=== PATIENT | female | born 1980 | race Caucasian/White ===

== ENCOUNTER 2017-01-19 10:01 | Emergency (ER) | payer SELFPAY ==
[~2017-01-19] VITALS: Ht 167.6 cm; Wt 72.2 kg
[2017-01-19 10:22] VITALS: BP 129/80
== END 2017-01-19 11:38 | disposition home or self-care (01) ==
LOC: ED 11:00
DX: J20.9 Acute bronchitis, unspecified (principal); B96.89 Other specified bacterial agents as the cause of diseases classified elsewhere; H66.001 Acute suppurative otitis media without spontaneous rupture of ear drum, right ear; J45.909 Unspecified asthma, uncomplicated
CPT/HCPCS: 71020; 93005; 99284

== ENCOUNTER 2017-02-18 08:17 | Emergency (ER) | payer SELFPAY ==
[~2017-02-18] VITALS: Ht 167.6 cm; Wt 74.0 kg
[2017-02-18 08:18] VITALS: BP 130/85
== END 2017-02-18 08:51 | disposition home or self-care (01) ==
LOC: ED 08:40
DX: K02.9 Dental caries, unspecified (principal); J45.909 Unspecified asthma, uncomplicated
CPT/HCPCS: 99283

== ENCOUNTER 2017-06-14 16:48 | Emergency (ER) | payer SELFPAY ==
[~2017-06-14] VITALS: Ht 167.6 cm; Wt 73.6 kg
[2017-06-14 16:49] VITALS: BP 133/88
[2017-06-14] MEDS ORDERED: ONDANSETRON ODT 4 MG ONE (17:27)
[2017-06-14] MEDS ORDERED: HYDROcodone/APAP 5/325 TABLET PO ONE (17:29)
[2017-06-14] MEDS ORDERED: ONDANSETRON ODT 4 MG PO ONE (17:30)
[2017-06-14] MEDS ORDERED: HYDROcodone/APAP 5/325 TABLET ONE (17:51)
== END 2017-06-14 18:20 | disposition home or self-care (01) ==
LOC: ED 18:10
DX: S93.492A Sprain of other ligament of left ankle, initial encounter (principal); F12.10 Cannabis abuse, uncomplicated; W18.30XA Fall on same level, unspecified, initial encounter; Y99.8 Other external cause status; Y93.01 Activity, walking, marching and hiking; Y92.488 Other paved roadways as the place of occurrence of the external cause
CPT/HCPCS: 99284

== ENCOUNTER 2017-07-24 10:12 | Emergency (ER) | payer SELFPAY ==
[~2017-07-24] VITALS: Ht 167.6 cm; Wt 72.6 kg
[2017-07-24 10:16] VITALS: BP 108/78
[2017-07-24] MEDS ORDERED: DIAZEPAM 5 MG TABLET ONE (10:52)
[2017-07-24] MEDS ORDERED: KETOROLAC 30 MG/1 ML ONE (10:52)
[2017-07-24] MEDS ORDERED: KETOROLAC 30 MG/1 ML IM ONE (11:00)
[2017-07-24] MEDS ORDERED: DIAZEPAM 5 MG TABLET PO ONE (11:00)
== END 2017-07-24 12:37 | disposition home or self-care (01) ==
LOC: ED 11:45
DX: M54.12 Radiculopathy, cervical region (principal); J45.909 Unspecified asthma, uncomplicated; F17.200 Nicotine dependence, unspecified, uncomplicated; Z90.49 Acquired absence of other specified parts of digestive tract; Z88.0 Allergy status to penicillin; Z88.1 Allergy status to other antibiotic agents
CPT/HCPCS: 72050; 73030; 73110; 96372; 99284; J1885; J7512

== ENCOUNTER 2017-11-03 07:38 | Emergency (ER) | payer OTHER ==
[~2017-11-03] VITALS: Ht 167.6 cm; Wt 68.2 kg
[2017-11-03] MEDS ORDERED: PROMETHAZINE 25 MG/ML, 1ML IM ONE (08:00)
[2017-11-03] MEDS ORDERED: SODIUM CHLORIDE FLUSH 10ML SYR IVF ONE (08:00)
[2017-11-03] MEDS ORDERED: SODIUM CHLORIDE 0.9% 1,000 ML IV ONE (08:00)
[2017-11-03] MEDS ORDERED: SODIUM CHLORIDE 0.9% 1,000ML IVBOLUS ONE (08:00)
[2017-11-03] MEDS ORDERED: PROMETHAZINE 25 MG/ML, 1ML ONE (08:11)
[2017-11-03 08:27] LABS: BASOPHILS # (AUTO) 0.05 x10^3/uL (0-0.1); BASOPHILS % (AUTO) 0 % (0-1); EOSINOPHILS # (AUTO) 0.45 x10^3/uL (0-0.4); EOSINOPHILS % (AUTO) 3 % (1-7); LYMPHOCYTES # (AUTO) 2.69 x10^3/uL (1-3.4); LYMPHOCYTES % (AUTO) 20 % (22-44); MD NO; MEAN CORPUSCULAR HEMOGLOBIN 31.9 pg (27.0-34.8); MEAN CORPUSCULAR HGB CONC 33.9 g/dL (32.4-35.8); MEAN PLATELET VOLUME 8.4 fL (7.4-10.4); MONOCYTES # (AUTO) 0.86 x10^3/uL (0.2-0.8); MONOCYTES % (AUTO) 7 % (2-9); NEUTROPHILS # (AUTO) 9.21 x10^3/uL (1.8-6.8); NEUTROPHILS % (AUTO) 70 % (42-75); PLATELET COUNT 283 x10^3/uL (130-400); RED BLOOD COUNT 4.87 x10^6/uL (3.82-5.3)
[2017-11-03 08:31] LABS: RAPID INFLUENZA A Negative (Negative)
[2017-11-03 08:32] LABS: RAPID INFLUENZA B Negative (Negative)
[2017-11-03 08:37] LABS: ALBUMIN 4.1 g/dL (3.4-5.0); ANION GAP 12 mmol/L (5-15); CALCIUM 9.2 mg/dL (8.5-10.1); CHLORIDE 107 mmol/L (98-107)
[2017-11-03 08:45] LABS: ALANINE AMINOTRANSFERASE 36 U/L (12-78); ALKALINE PHOSPHATASE 61 U/L (45-117); BILIRUBIN,TOTAL 0.6 mg/dL (0.2-1.0); CREATININE 0.85 mg/dL (0.55-1.02); TOTAL PROTEIN 7.8 g/dL (6.4-8.2)
[2017-11-03] MEDS ORDERED: METOCLOPRAMIDE 5 MG/ML, 2ML ONE (09:56)
[2017-11-03] MEDS ORDERED: METOCLOPRAMIDE 5 MG/ML, 2ML IVPush ONE (10:00)
[2017-11-03] MEDS ORDERED: ONDANSETRON 2MG/ML, 2ML ONE (10:14)
[2017-11-03] MEDS ORDERED: ONDANSETRON 2MG/ML, 2ML IVPush ONE (10:30)
[2017-11-03] MEDS ORDERED: OMNIPAQUE 350 MG/ML, 100ML BOTTLE ONE (10:59)
[2017-11-03 11:46] VITALS: BP 117/73
[2017-11-03 11:48] LABS: MICROSCOPIC NOT IND
[2017-11-03 11:51] LABS: CULTURE INDICATED? NO
== END 2017-11-03 11:50 | disposition home or self-care (01) ==
LOC: ED 09:03
DX: K52.9 Noninfective gastroenteritis and colitis, unspecified (principal); D72.829 Elevated white blood cell count, unspecified; J45.909 Unspecified asthma, uncomplicated
CPT/HCPCS: 36415; 74022; 74177; 80053; 81003; 83690; 84703; 85025; 87400; 96361; 96372; 96374; 96375; 99285; J2405; J2550; J2765; J7030; Q9967

== ENCOUNTER 2018-03-31 10:32 | Emergency (ER) | payer OTHER ==
[~2018-03-31] VITALS: Ht 167.6 cm; Wt 76.5 kg
[2018-03-31 10:34] VITALS: BP 131/70
[2018-03-31] MEDS ORDERED: HYDROcodone/APAP 5/325 TABLET ONE (10:59)
[2018-03-31] MEDS ORDERED: HYDROcodone/APAP 5/325 TABLET PO ONE (11:00)
== END 2018-03-31 13:30 | disposition home or self-care (01) ==
LOC: ED 11:00
DX: S90.32XA Contusion of left foot, initial encounter (principal); J45.909 Unspecified asthma, uncomplicated; W19.XXXA Unspecified fall, initial encounter; Y93.39 Activity, other involving climbing, rappelling and jumping off; Y92.828 Other wilderness area as the place of occurrence of the external cause; Y99.9 Unspecified external cause status
CPT/HCPCS: 29515; 99284

== ENCOUNTER 2018-08-30 11:21 | Emergency (ER) | payer SELFPAY ==
[~2018-08-30] VITALS: Ht 167.6 cm; Wt 70.0 kg
[2018-08-30 12:33] LABS: BASOPHILS # (AUTO) 0.03 x10^3/uL (0-0.1); BASOPHILS % (AUTO) 0 % (0-1); EOSINOPHILS # (AUTO) 0.17 x10^3/uL (0-0.4); EOSINOPHILS % (AUTO) 2 % (1-7); LYMPHOCYTES # (AUTO) 2.41 x10^3/uL (1-3.4); LYMPHOCYTES % (AUTO) 23 % (22-44); MD NO; MEAN CORPUSCULAR HEMOGLOBIN 32.6 pg (27.0-34.8); MEAN CORPUSCULAR HGB CONC 33.6 g/dL (32.4-35.8); MEAN CORPUSCULAR VOLUME 96.8 fL (80-100); MONOCYTES # (AUTO) 0.42 x10^3/uL (0.2-0.8); MONOCYTES % (AUTO) 4 % (2-9); NEUTROPHILS # (AUTO) 7.55 x10^3/uL (1.8-6.8); NEUTROPHILS % (AUTO) 71 % (42-75); PLATELET COUNT 330 x10^3/uL (130-400); RED BLOOD COUNT 4.48 x10^6/uL (3.82-5.3); RED CELL DISTRIBUTION WIDTH 13.3 % (9.6-15.2)
[2018-08-30 12:47] LABS: ANION GAP 8 mmol/L (5-15); CALCIUM 8.9 mg/dL (8.5-10.1); CHLORIDE 109 mmol/L (98-107)
[2018-08-30 13:16] LABS: ALANINE AMINOTRANSFERASE 23 U/L (12-78); ALKALINE PHOSPHATASE 52 U/L (45-117); BILIRUBIN,TOTAL 0.4 mg/dL (0.2-1.0); FOLATE LEVEL 13.7 ng/mL (3.1-17.5); TOTAL PROTEIN 7.7 g/dL (6.4-8.2)
[2018-08-30] MEDS ORDERED: DIAZEPAM 5 MG TABLET PO ONE (13:30)
[2018-08-30] MEDS ORDERED: DIAZEPAM 5 MG TABLET ONE (13:42)
[2018-08-30 13:48] VITALS: BP 107/75
[2018-08-30 14:21] LABS: MICROSCOPIC NOT IND
[2018-08-30 14:25] LABS: CULTURE INDICATED? NO
== END 2018-08-30 16:57 | disposition home or self-care (01) ==
LOC: ED 16:13
DX: M79.671 Pain in right foot (principal); M79.672 Pain in left foot; M54.41 Lumbago with sciatica, right side
CPT/HCPCS: 36415; 72110; 72146; 72148; 80053; 81003; 82607; 82746; 85025; 99285

== ENCOUNTER 2018-10-17 14:26 | Emergency (ER) | payer SELFPAY ==
[~2018-10-17] VITALS: Ht 167.6 cm; Wt 75.0 kg
[2018-10-17] MEDS ORDERED: KETOROLAC 30 MG/1 ML ONE (14:37)
[2018-10-17] MEDS ORDERED: PROMETHAZINE 25 MG/ML, 1ML ONE (14:37)
[2018-10-17] MEDS ORDERED: KETOROLAC 30 MG/1 ML IVPush ONE (15:00)
[2018-10-17] MEDS ORDERED: PROMETHAZINE 25 MG/ML, 1ML IM ONE (15:00)
[2018-10-17] MEDS ORDERED: SODIUM CHLORIDE 0.9% 1,000ML IVBOLUS ONE (15:00)
[2018-10-17 15:15] LABS: BASOPHILS # (AUTO) 0.02 x10^3/uL (0-0.1); BASOPHILS % (AUTO) 0 % (0-1); EOSINOPHILS % (AUTO) 0 % (1-7); LYMPHOCYTES # (AUTO) 1.53 x10^3/uL (1-3.4); LYMPHOCYTES % (AUTO) 14 % (22-44); MD NO; MEAN CORPUSCULAR HEMOGLOBIN 32.6 pg (27.0-34.8); MEAN CORPUSCULAR HGB CONC 33.8 g/dL (32.4-35.8); MEAN CORPUSCULAR VOLUME 96.4 fL (80-100); MEAN PLATELET VOLUME 8.1 fL (7.4-10.4); MONOCYTES # (AUTO) 0.65 x10^3/uL (0.2-0.8); MONOCYTES % (AUTO) 6 % (2-9); NEUTROPHILS # (AUTO) 9.02 x10^3/uL (1.8-6.8); NEUTROPHILS % (AUTO) 80 % (42-75); PLATELET COUNT 294 x10^3/uL (130-400); RED BLOOD COUNT 4.35 x10^6/uL (3.82-5.3); RED CELL DISTRIBUTION WIDTH 13.3 % (9.6-15.2)
[2018-10-17 15:25] LABS: ALANINE AMINOTRANSFERASE 18 U/L (12-78); ANION GAP 10 mmol/L (5-15); CALCIUM 8.4 mg/dL (8.5-10.1); CHLORIDE 105 mmol/L (98-107); CREATININE 0.93 mg/dL (0.55-1.02)
[2018-10-17 15:27] LABS: ALKALINE PHOSPHATASE 45 U/L (45-117); BILIRUBIN,TOTAL 1.5 mg/dL (0.2-1.0); TOTAL PROTEIN 7.4 g/dL (6.4-8.2)
[2018-10-17 16:21] LABS: HCG UR SG 1.028 (1.003-1.030)
[2018-10-17 16:24] LABS: CULTURE INDICATED? YES; MICROSCOPIC INDICATED
[2018-10-17 16:49] VITALS: BP 115/87
== END 2018-10-17 16:56 | disposition home or self-care (01) ==
LOC: ED 14:45
DX: E87.6 Hypokalemia (principal); R11.2 Nausea with vomiting, unspecified; R10.84 Generalized abdominal pain; R19.7 Diarrhea, unspecified; F17.200 Nicotine dependence, unspecified, uncomplicated; F12.10 Cannabis abuse, uncomplicated; Z90.49 Acquired absence of other specified parts of digestive tract
CPT/HCPCS: 36415; 80053; 81001; 81025; 83690; 85025; 87086; 96361; 96372; 96374; 99283; J1885; J2550; J7030

== ENCOUNTER 2019-01-17 09:30 | Emergency (ER) | payer SELFPAY ==
[~2019-01-17] VITALS: Ht 167.6 cm; Wt 82.0 kg
[2019-01-17 09:51] VITALS: BP 138/82
== END 2019-01-17 10:18 | disposition home or self-care (01) ==
LOC: ED 10:14
DX: K02.9 Dental caries, unspecified (principal); F17.210 Nicotine dependence, cigarettes, uncomplicated; J45.909 Unspecified asthma, uncomplicated
CPT/HCPCS: 99283

== ENCOUNTER 2019-02-07 09:59 | Emergency (ER) | payer SELFPAY ==
[~2019-02-07] VITALS: Ht 167.6 cm; Wt 80.0 kg
[2019-02-07 10:43] LABS: MICROSCOPIC AUTO
[2019-02-07 10:45] LABS: CULTURE INDICATED? NO
[2019-02-07 10:52] LABS: BASOPHILS # (AUTO) 0.07 x10^3/uL (0-0.1); BASOPHILS % (AUTO) 1 % (0-1); EOSINOPHILS # (AUTO) 0.09 x10^3/uL (0-0.4); EOSINOPHILS % (AUTO) 1 % (1-7); LYMPHOCYTES # (AUTO) 1.77 x10^3/uL (1-3.4); LYMPHOCYTES % (AUTO) 16 % (22-44); MD NO; MEAN CORPUSCULAR HEMOGLOBIN 33.1 pg (27.0-34.8); MEAN CORPUSCULAR VOLUME 97.4 fL (80-100); MEAN PLATELET VOLUME 7.8 fL (7.4-10.4); MONOCYTES # (AUTO) 0.47 x10^3/uL (0.2-0.8); MONOCYTES % (AUTO) 4 % (2-9); NEUTROPHILS # (AUTO) 9.07 x10^3/uL (1.8-6.8); NEUTROPHILS % (AUTO) 79 % (42-75); PLATELET COUNT 321 x10^3/uL (130-400); RED BLOOD COUNT 4.43 x10^6/uL (3.82-5.3); RED CELL DISTRIBUTION WIDTH 12.9 % (9.6-15.2)
[2019-02-07] MEDS ORDERED: MORPHINE SULFATE 4 MG/ML, 1ML ONE (10:58)
[2019-02-07] MEDS ORDERED: ONDANSETRON 2MG/ML, 2ML ONE (10:58)
[2019-02-07] MEDS ORDERED: KETOROLAC 30 MG/1 ML ONE (10:58)
[2019-02-07] MEDS ORDERED: KETOROLAC 30 MG/1 ML IVPush ONE (11:00)
[2019-02-07] MEDS ORDERED: SODIUM CHLORIDE FLUSH 10ML SYR IVF ONE (11:00)
[2019-02-07] MEDS ORDERED: MORPHINE SULFATE 4 MG/ML, 1ML IVPush PRN (11:00)
[2019-02-07] MEDS ORDERED: ONDANSETRON 2MG/ML, 2ML IVPush ONE (11:00)
--- NOTE | 2019-02-07 11:00 | NUR ---
RECEIVED REPORT FROM ARGENIS MCCRACKEN, ASSUMING CARE OF PT. IV PLACED, PT MEDICATED FOR PAIN PER MAR. PRESENTING TO ER FOR RIGHT SIDE PAIN RADIATING AROUND TO BACK CAUSING N/V/D, AND PAINFUL URINATION. PT REPORTING DAILY DRINKER OF AT LEAST 3 QUARTS, YESTERDAY DRINKING MORE THAN USUAL THEN WAKING IN THE MORNING WITH THESE SYMPTOMS. CONNECTED TO MONITORING, VSS. CALL LIGHT WITHIN REACH. AWAITING CT AT THIS TIME
[2019-02-07 11:03] LABS: ALANINE AMINOTRANSFERASE 23 U/L (12-78); ANION GAP 9 mmol/L (5-15); CALCIUM 8.7 mg/dL (8.5-10.1); CHLORIDE 109 mmol/L (98-107); CREATININE 0.78 mg/dL (0.55-1.02)
[2019-02-07 11:08] LABS: ALKALINE PHOSPHATASE 51 U/L (45-117); BILIRUBIN,TOTAL 0.4 mg/dL (0.2-1.0); TOTAL PROTEIN 7.3 g/dL (6.4-8.2)
[2019-02-07 11:58] VITALS: BP 127/55
--- NOTE | 2019-02-07 11:58 | NUR ---
ALL RESULTS BACK AT THIS TIME, CHART UP FOR RECHECK
== END 2019-02-07 13:01 | disposition home or self-care (01) ==
LOC: ED 11:11
DX: R10.11 Right upper quadrant pain (principal); R10.31 Right lower quadrant pain
CPT/HCPCS: 36415; 74176; 80053; 81001; 83690; 84703; 85025; 96374; 96375; 99284; J1885; J2405

== ENCOUNTER 2019-03-22 10:10 | Emergency (ER) | payer OTHER ==
[~2019-03-22] VITALS: Ht 167.6 cm; Wt 79.0 kg
--- NOTE | 2019-03-22 11:05 | NUR ---
pt upright on gurney awake & c/o pain, responds approp to staff, comfort measures provided, call light within reach.
[2019-03-22] MEDS ORDERED: MORPHINE SULFATE 4 MG/ML, 1ML ONE (11:12)
[2019-03-22] MEDS ORDERED: morphine SULFATE 10 MG/ML, 1ML IV ONE (11:30)
--- NOTE | 2019-03-22 12:05 | NUR ---
pt returned from US, remains upright on gurney awake & more comfortable after pain med, responds approp to staff, NAD, comfort measures provided, call light within reach.
[2019-03-22 12:16] LABS: BASOPHILS # (AUTO) 0.06 x10^3/uL (0-0.1); BASOPHILS % (AUTO) 1 % (0-1); EOSINOPHILS # (AUTO) 0.08 x10^3/uL (0-0.4); EOSINOPHILS % (AUTO) 1 % (1-7); LYMPHOCYTES # (AUTO) 1.36 x10^3/uL (1-3.4); LYMPHOCYTES % (AUTO) 11 % (22-44); MD NO; MEAN CORPUSCULAR HEMOGLOBIN 32.9 pg (27.0-34.8); MEAN CORPUSCULAR HGB CONC 33.1 g/dL (32.4-35.8); MEAN CORPUSCULAR VOLUME 99.5 fL (80-100); MONOCYTES # (AUTO) 0.34 x10^3/uL (0.2-0.8); MONOCYTES % (AUTO) 3 % (2-9); NEUTROPHILS % (AUTO) 86 % (42-75); PLATELET COUNT 335 x10^3/uL (130-400); RED BLOOD COUNT 4.36 x10^6/uL (3.82-5.3); RED CELL DISTRIBUTION WIDTH 13.1 % (9.6-15.2)
[2019-03-22 12:31] LABS: INTERNATIONAL NORMALIZED RATIO 0.95 (0.93-1.1)
[2019-03-22 12:39] LABS: ALANINE AMINOTRANSFERASE 18 U/L (12-78); ALBUMIN 4.2 g/dL (3.4-5.0); ANION GAP 8 mmol/L (5-15); CALCIUM 8.7 mg/dL (8.5-10.1); CHLORIDE 110 mmol/L (98-107); CREATININE 0.87 mg/dL (0.55-1.02)
[2019-03-22] MEDS ORDERED: OXYcodone/APAP 5/325MG TABLET ONE (12:41)
[2019-03-22 12:43] LABS: ALKALINE PHOSPHATASE 47 U/L (45-117); BILIRUBIN,TOTAL 0.4 mg/dL (0.2-1.0); TOTAL PROTEIN 7.1 g/dL (6.4-8.2)
[2019-03-22] MEDS ORDERED: OXYcodone/APAP 5/325MG TABLET PO ONE (13:00)
[2019-03-22 13:05] VITALS: BP 117/65
--- NOTE | 2019-03-22 13:05 | NUR ---
Patient is resting comfortably in bed. Vital Signs within normal limits. Await ER MD pichardo.
[2019-03-22] MEDS ORDERED: MEDROXYPROGESTERONE ACETATE 5 MG TABLET PO ONE (14:00)
--- NOTE | 2019-03-22 14:29 | NUR ---
Patient given discharge instructions and Rx, they have confirmed that they understand the instructions. Patient ambulatory with steady gait.
== END 2019-03-22 14:30 | disposition home or self-care (01) ==
LOC: ED 10:57
DX: N83.292 Other ovarian cyst, left side (principal); N93.8 Other specified abnormal uterine and vaginal bleeding; Z90.710 Acquired absence of both cervix and uterus
CPT/HCPCS: 36415; 76830; 80053; 84703; 85025; 85610; 85730; 86850; 86900; 96374; 99284; J2270

== ENCOUNTER 2019-05-30 08:32 | Emergency (ER) | payer SELFPAY ==
[~2019-05-30] VITALS: Ht 167.6 cm; Wt 77.0 kg
[2019-05-30 12:24] VITALS: BP 116/61
== END 2019-05-30 12:37 | disposition home or self-care (01) ==
LOC: ED 09:52 → UNDOADMIN 11:39 → EDIP 11:39 → ED 12:37
DX: K52.9 Noninfective gastroenteritis and colitis, unspecified (principal); E86.0 Dehydration; J45.909 Unspecified asthma, uncomplicated; Z90.49 Acquired absence of other specified parts of digestive tract
CPT/HCPCS: 36415; 80048; 80076; 81003; 82040; 83690; 84703; 85025; 96361; 96372; 96374; 96375; 99283; J2270; J2405; J2550; J7030

== ENCOUNTER 2020-04-07 10:37 | Emergency (ER) | payer SELFPAY ==
[~2020-04-07] VITALS: Ht 167.6 cm; Wt 80.0 kg
[2020-04-07 10:38] VITALS: BP 119/64
== END 2020-04-07 11:45 | disposition home or self-care (01) ==
LOC: ED 10:45
DX: H66.001 Acute suppurative otitis media without spontaneous rupture of ear drum, right ear (principal); R11.0 Nausea; R51 Headache; J45.909 Unspecified asthma, uncomplicated; Z90.49 Acquired absence of other specified parts of digestive tract
CPT/HCPCS: 99283

== ENCOUNTER 2020-08-07 16:05 | Emergency (ER) | payer SELFPAY ==
[~2020-08-07] VITALS: Ht 167.6 cm; Wt 73.1 kg
[2020-08-07 16:08] VITALS: BP 127/94
[2020-08-07 16:36] LABS: BASOPHILS % (AUTO) 1 % (0-1); EOSINOPHILS % (AUTO) 1 % (1-7); LYMPHOCYTES % (AUTO) 29 % (22-44); MEAN CORPUSCULAR HEMOGLOBIN 30.9 pg (27.0-34.8); MEAN CORPUSCULAR HGB CONC 33.2 g/dL (32.4-35.8); MEAN PLATELET VOLUME 8.2 fL (7.4-10.4); MONOCYTES % (AUTO) 6 % (2-9); NEUTROPHILS % (AUTO) 64 % (42-75); PLATELET COUNT 382 x10^3/uL (130-400); RED BLOOD COUNT 4.89 x10^6/uL (3.82-5.3); RED CELL DISTRIBUTION WIDTH 14.9 % (9.6-15.2)
[2020-08-07 16:39] LABS: MD NO
[2020-08-07 16:45] LABS: ALANINE AMINOTRANSFERASE 39 U/L (12-78); ALBUMIN 4.1 g/dL (3.4-5.0); ANION GAP 8 mmol/L (5-15); CALCIUM 9.1 mg/dL (8.5-10.1); CHLORIDE 108 mmol/L (98-107); CREATININE 0.78 mg/dL (0.55-1.02)
[2020-08-07 16:49] LABS: ALKALINE PHOSPHATASE 74 U/L (45-117); TOTAL PROTEIN 7.9 g/dL (6.4-8.2)
--- NOTE | 2020-08-07 17:20 | NUR ---
ROAD SIGN INSTALLER: PT TO ROOM FROM LOBBY
--- NOTE | 2020-08-07 17:45 | NUR ---
Pt here for lower abd pain, not feeling well. pt reports saturating 3 pads of blood. Pt denies any current bleeding. Pt reports she has never been able to carry a child. pt in room resting.
[2020-08-07] MEDS ORDERED: KETOROLAC 30 MG/1 ML ONE (17:50)
[2020-08-07] MEDS ORDERED: KETOROLAC 30 MG/1 ML IM ONE (18:00)
--- NOTE | 2020-08-07 18:08 | NUR ---
Patient/Caregiver given discharge instructions and they have confirmed that they understand the instructions. Patient ambulatory with steady gait.
== END 2020-08-07 18:11 | disposition home or self-care (01) ==
LOC: ED 17:25
DX: E87.6 Hypokalemia (principal); D25.9 Leiomyoma of uterus, unspecified; N93.8 Other specified abnormal uterine and vaginal bleeding; R10.2 Pelvic and perineal pain; Z90.49 Acquired absence of other specified parts of digestive tract
CPT/HCPCS: 36415; 76830; 80053; 84702; 85025; 86850; 86900; 96372; 99284; J1885

== ENCOUNTER 2021-02-23 08:28 | Inpatient (IN) | payer MEDICAID ==
[~2021-02-23] VITALS: Ht 170.2 cm; Wt 80.3 kg
[2021-02-23] MEDS ORDERED: SODIUM CHLORIDE FLUSH 10ML SYR IVF ONE (09:00)
[2021-02-23] MEDS ORDERED: ONDANSETRON 2MG/ML, 2ML IVPush ONE ×2 (09:00→13:30)
[2021-02-23] MEDS ORDERED: FAMOTIDINE 20 MG/2 ML IVPush ONE (09:00)
[2021-02-23] MEDS ORDERED: SODIUM CHLORIDE 0.9% 1,000ML IVBOLUS ONE (09:00)
[2021-02-23] MEDS ORDERED: FAMOTIDINE 20 MG/2 ML ONE (09:05)
[2021-02-23] MEDS ORDERED: ONDANSETRON 2MG/ML, 2ML ONE (09:05)
--- NOTE | 2021-02-23 09:15 | NUR ---
ASSUMED PT CARE. PT HAS HAD N/V/D FOR 3 DAYS, CURRENTLY HAVING ABD CRAMPS AND IS IRRITABLE NOT WANTING TO ANSWER QUESTIONS.
[2021-02-23] MEDS ORDERED: PARO10TA3 PO (09:26)
--- NOTE | 2021-02-23 09:27 | NUR ---
UNABLE TO COMPLETE MED REC, PT JUST STARTED PAXIL WHICH IS DOCUMENTED BUT UNSURE OF SYMBICORT DOSE
[2021-02-23 09:57] LABS: BASOPHILS % (AUTO) 0 % (0-1); EOSINOPHILS % (AUTO) 0 % (1-7); LYMPHOCYTES % (AUTO) 9 % (22-44); MEAN CORPUSCULAR HEMOGLOBIN 32.2 pg (27.0-34.8); MEAN CORPUSCULAR HGB CONC 34.4 g/dL (32.4-35.8); MEAN PLATELET VOLUME 8.3 fL (7.4-10.4); MONOCYTES % (AUTO) 3 % (2-9); NEUTROPHILS % (AUTO) 88 % (42-75); PLATELET COUNT 355 x10^3/uL (130-400); RED BLOOD COUNT 5.07 x10^6/uL (3.82-5.3); RED CELL DISTRIBUTION WIDTH 13.1 % (9.6-15.2)
[2021-02-23 10:04] LABS: ALBUMIN 4.5 g/dL (3.4-5.0); ANION GAP 12 mmol/L (5-15); CALCIUM 9.2 mg/dL (8.5-10.1); CHLORIDE 103 mmol/L (98-107)
[2021-02-23 10:11] LABS: ALANINE AMINOTRANSFERASE 39 U/L (12-78); ALKALINE PHOSPHATASE 75 U/L (45-117); BILIRUBIN,TOTAL 1.3 mg/dL (0.2-1.0); CREATININE 0.82 mg/dL (0.55-1.02); TOTAL PROTEIN 8.3 g/dL (6.4-8.2)
[2021-02-23 10:12] LABS: MD SCAN
[2021-02-23] MEDS ORDERED: PROMETHAZINE 25 MG/ML, 1ML ONE (10:18)
[2021-02-23] MEDS ORDERED: PROMETHAZINE 25 MG/ML, 1ML IM ONE (10:30)
[2021-02-23 10:52] LABS: MICROSCOPIC INDICATED
[2021-02-23] MEDS ORDERED: OMNIPAQUE 350 MG/ML, 100ML BOTTLE ONE (11:17)
--- NOTE | 2021-02-23 11:23 | NUR ---
Break RN note: Pt resting in bed with eyes closed, resp even and unlabored. Pt's SPO2 on RA 88%. Pt arousable to this RN calling her name. 2L O2 applied via NC with SPO2 up to 99%. Pt reports nausea improved after medications, denies other needs.
--- NOTE | 2021-02-23 12:58 | NUR ---
PT RESTING ON GURNEY. STATES PAIN 06/11. VSS.
[2021-02-23] MEDS ORDERED: NS + 40MEQ KCL 1,000 ML IV ONE ×2 (13:00→13:15)
[2021-02-23] MEDS ORDERED: METRONIDAZOLE PMX 500MG/100ML 100 ML IV ONE (13:00)
[2021-02-23] MEDS ORDERED: CEFTRIAXONE 1,000 MG in DEXTROSE 5% 50 ML IVPB ONE (13:00)
--- NOTE | 2021-02-23 13:10 | NUR ---
TASK RN: THIS RN WENT INTO PT ROOM TO MEET AND UPDATE VS. PT STATES "I JUST WANT TO LEAVE AND GO HOME". EDUCATED ON ORDERS FOR IV ABX. PT STATES "I'LL STAY FOR THAT AND THEN I WANT TO GO HOME". PT THEN LOOKS AT AND STATES "SEE. ARE YOU HAPPY NOW?" PT THEN LOOKS BACK AT THIS RN AND STATES "IS THERE ANYTHING FOR MY PAIN?" AND PT STATES "THEY DON'T GIVE YOU ANY PAIN MEDS HERE FOR YOUR PAIN". PT EDUCATED ABOUT PROCESS. DISCUSSED W/ ERP DR. STEEL. PT MEDICATED PER DEC. ERP DR. STEEL AT BEDSIDE AFTER INCIDENT W/ THIS RN AND PT EDUCATED ON IMPORTANCE OF ADMISSION FOR COLITIS. PT INTERRUPTED ERP TO STATE "IF SHE GETS SICK I'LL TAKE HER SOMEWHERE ELSE I DON'T WANT HER TO STAY HERE THE CARE IS BAD". WHEN ASKED TO DISCUSS THIS FUTHER PT STATES "NOTHING. YOU GUYS ARE NICE BUT THAT NURSE TOOK TOO LONG LOOKING AT HER VEINS TO START HER IV I'D RATHER HAVE HER GO SOMEWHERE ELSE. IF SHE STAYS SICK LIKE YOU SAY SHE WILL I'LL TAKE HER TO [facility]". THIS RN ASSESSED PT'S FACE. PT RED AND LOOKING DOWN. DISCUSSED W/ ERP DR STEEL AND [place], PRIMARY RN'S IN REGARDS TO HAVING A WHIPPED TOPPING MIXER COME MEET WITH PT.
[2021-02-23] MEDS ORDERED: MORPHINE SULFATE 4 MG/ML, 1ML ONE (13:15)
[2021-02-23] MEDS ORDERED: POTASSIUM CHLORIDE 20 MEQ TAB.ER.PRT ONE (13:15)
[2021-02-23] MEDS ORDERED: POTASSIUM CHLORIDE 20 MEQ TAB.ER.PRT PO ONE (13:30)
[2021-02-23] MEDS ORDERED: MORPHINE SULFATE 4 MG/ML, 1ML IVPush PRN (13:30)
[2021-02-23] MEDS ORDERED: SODIUM CHLORIDE FLUSH 10ML SYR IVF PRN ×2 (13:30→14:30)
[2021-02-23] MEDS ORDERED: SODIUM CHLORIDE 0.9% 1,000 ML IV ONE ×2 (13:30→14:30)
--- NOTE | 2021-02-23 13:37 | NUR ---
UPDATE RECEIVED FROM KAYLN RN, MEDS GIVEN (SEE EMAR). SHE DID EXPRESS CONCERN REGARDING THE COUPLE DYNAMIC AND THE PT DECISION NOT TO BE ADMITTED. SW CONTACTED. AWARE.
--- NOTE | 2021-02-23 14:06 | NUR ---
SW AT BEDSIDE. PT REPORTS TO RN THAT IS NOT ABUSIVE, HE HAS NEVER LAID A HAND ON HER. SHE HAS OPTED TO BE ADMITTED. Addendum: 02/23/21 at 1406 by AMISHA MD SHEPPARD
[2021-02-23] MEDS ORDERED: ONDANSETRON 2MG/ML, 2ML IVPush PRN (14:30)
[2021-02-23] MEDS ORDERED: ONDANSETRON ODT 4 MG PO PRN (14:30)
[2021-02-23] MEDS ORDERED: ACETAMINOPHEN 325 MG TABLET PO PRN (14:30)
[2021-02-23] MEDS ORDERED: PROMETHAZINE 25 MG/ML, 1ML IM PRN (14:30)
[2021-02-23] MEDS ORDERED: MELATONIN 5 MG TABLET PO PRN (14:30)
[2021-02-23] MEDS ORDERED: hydrALAzine 20 MG/ML, 1ML IVPush PRN (14:30)
[2021-02-23] MEDS ORDERED: METRONIDAZOLE PMX 500MG/100ML 100 ML ONE (14:31)
--- NOTE | 2021-02-23 14:45 | NUR ---
IV ROCEPHIN DONE. IV FLAGYL STARTED.
[2021-02-23] MEDS ORDERED: ENOXAPARIN 40 MG/0.4 ML SQ SCH (15:00)
[2021-02-23 15:42] VITALS: BP 105/62
[2021-02-23] MEDS: CIPROFLOXACIN/PMX 400MG/200ML 200 ML IV SCH (15:53)
[2021-02-23] MEDS: HYDROcodone/APAP 5/325 TABLET PO PRN ×2 (15:54→19:59)
[2021-02-23 16:41] LABS: HCT (SEDRATE) 42.2 % (34.6-47.8)
[2021-02-23] MEDS ORDERED: MAGNESIUM SULFATE PMX 2GM/50ML 50 ML IV ONE (17:30)
[2021-02-23] MEDS ORDERED: ALBU8.5H8 INH (17:55)
[2021-02-23] MEDS ORDERED: symbicort (17:56)
[2021-02-23] MEDS ORDERED: [UNRECOGNIZED DRUG - OTHER] (17:56)
[2021-02-23 19:36] VITALS: BP 120/75
[2021-02-23] MEDS: LACTATED RINGERS 1,000 ML IV SCH (19:54)
[2021-02-23] MEDS: K-PHOS NEUTRAL 250MG TAB PO SCH (21:54)
[2021-02-23] MEDS: METRONIDAZOLE PMX 500MG/100ML 100 ML IV SCH (21:54)
[2021-02-24 00:38] VITALS: BP 90/52
[2021-02-24 01:50] VITALS: BP 116/69
[2021-02-24] MEDS: METRONIDAZOLE PMX 500MG/100ML 100 ML IV SCH ×2 (03:26→08:30)
[2021-02-24] MEDS: CIPROFLOXACIN/PMX 400MG/200ML 200 ML IV SCH (04:51)
[2021-02-24] MEDS: LACTATED RINGERS 1,000 ML IV SCH ×2 (04:51→10:57)
[2021-02-24 05:16] LABS: BASOPHILS % (AUTO) 0 % (0-1); EOSINOPHILS % (AUTO) 1 % (1-7); LYMPHOCYTES % (AUTO) 28 % (22-44); MEAN CORPUSCULAR HEMOGLOBIN 32.5 pg (27.0-34.8); MEAN CORPUSCULAR HGB CONC 34.3 g/dL (32.4-35.8); MONOCYTES % (AUTO) 7 % (2-9); NEUTROPHILS % (AUTO) 64 % (42-75); PLATELET COUNT 305 x10^3/uL (130-400); RED BLOOD COUNT 4.19 x10^6/uL (3.82-5.3)
[2021-02-24 05:18] LABS: MD NO
[2021-02-24 05:22] LABS: CHLORIDE 110 mmol/L (98-107)
[2021-02-24 05:30] LABS: ALANINE AMINOTRANSFERASE 27 U/L (12-78); ALBUMIN 3.3 g/dL (3.4-5.0); ALKALINE PHOSPHATASE 54 U/L (45-117); ANION GAP 4 mmol/L (5-15); BILIRUBIN,TOTAL 0.8 mg/dL (0.2-1.0); CALCIUM 7.9 mg/dL (8.5-10.1); CREATININE 0.61 mg/dL (0.55-1.02); TOTAL PROTEIN 6.2 g/dL (6.4-8.2)
[2021-02-24 06:54] VITALS: BP 122/70
[2021-02-24] MEDS: K-PHOS NEUTRAL 250MG TAB PO SCH (08:30)
[2021-02-24] MEDS ORDERED: NICOTINE 14MG/24 HR PATCH.TD24 TD SCH (09:00)
[2021-02-24] MEDS: HYDROcodone/APAP 5/325 TABLET PO PRN (10:57)
[2021-02-24 12:19] LABS: STOOL FOR LEUKOCYTES NONE SEEN (NEGATIVE)
[2021-02-24 12:21] LABS: OCCULT BLOOD NEGATIVE (NEGATIVE)
== END 2021-02-24 13:25 | disposition left against medical advice (07) | DRG 392 ==
LOC: ED 08:54 → SUATTDRO 13:04 → EDIP 13:07 → 3N 14:38
PROVIDERS: ADMIT Hospitalist; ATTEND Hospitalist
DX: A09 Infectious gastroenteritis and colitis, unspecified (principal); R17 Unspecified jaundice; E87.6 Hypokalemia; D25.9 Leiomyoma of uterus, unspecified; E86.0 Dehydration; F12.90 Cannabis use, unspecified, uncomplicated; J44.9 Chronic obstructive pulmonary disease, unspecified; N83.201 Unspecified ovarian cyst, right side; F17.210 Nicotine dependence, cigarettes, uncomplicated; N83.202 Unspecified ovarian cyst, left side; Z90.49 Acquired absence of other specified parts of digestive tract; Z79.899 Other long term (current) drug therapy; Z79.891 Long term (current) use of opiate analgesic; Z88.0 Allergy status to penicillin
CPT/HCPCS: 36415; 71045; 74022; 74177; 80053; 81001; 82272; 83036; 83690; 83735; 84100; 84443; 84703; 85025; 85651; 86140; 87046; 87086; 89055; 93005; 96361; 96372; 96374; 96375; G0378; J0696; J0744; J1650; J2405; J2550; Q9967; J2270; J3475; J3480; J7030; J7120